=== PATIENT | male | born 1955 | race Caucasian/White ===

== ENCOUNTER 2021-12-28 15:32 | Outpatient (CLI) | payer MEDICARE | END 2021-12-28 15:33 | disposition home or self-care (01) | LOC: CSHLAB 15:32 | PROVIDERS: ATTEND Student in an Organized Health Care Education/Training Program | DX: Z20.822 Contact with and (suspected) exposure to COVID-19 (principal); R09.89 Other specified symptoms and signs involving the circulatory and respiratory systems | CPT/HCPCS: 87811 ==

== ENCOUNTER 2022-01-02 10:41 | Outpatient (CLI) | payer MEDICARE | END 2022-01-02 10:42 | disposition home or self-care (01) | LOC: CSHCP 10:41 | PROVIDERS: ATTEND Student in an Organized Health Care Education/Training Program | DX: Z12.2 Encounter for screening for malignant neoplasm of respiratory organs (principal); F17.210 Nicotine dependence, cigarettes, uncomplicated; J43.9 Emphysema, unspecified; R94.2 Abnormal results of pulmonary function studies; R91.1 Solitary pulmonary nodule; J98.4 Other disorders of lung | CPT/HCPCS: 71271; 94060; 94726; 94729; 94760 ==

== ENCOUNTER 2022-01-29 23:15 | Emergency (ER) | payer MEDICARE | END 2022-01-29 23:47 | disposition left against medical advice (07) | LOC: CSHERS 23:15 | DX: Z53.21 Procedure and treatment not carried out due to patient leaving prior to being seen by health care provider (principal) ==

== ENCOUNTER 2022-04-09 09:22 | Outpatient (CLI) | payer MEDICARE, OTHER ==
[~2022-04-09 09:22] MED LIST: Iopamidol 300 61% 100 ML VIAL FS ONE
== END 2022-04-09 09:23 | disposition home or self-care (01) ==
LOC: CSHCT 09:22
PROVIDERS: ATTEND Internal Medicine Critical Care Medicine
DX: R91.1 Solitary pulmonary nodule (principal); R91.8 Other nonspecific abnormal finding of lung field; J47.9 Bronchiectasis, uncomplicated
CPT/HCPCS: 71260; 82565